=== PATIENT | female | born 1985 | race Caucasian/White ===

== ENCOUNTER 2019-04-21 09:23 | Inpatient (IN) | payer OTHER ==
[2019-04-21 10:08] LABS: ADD MAN DIFF? NO
[2019-04-21 10:11] LABS: BASOPHIL # 0.1 10^3/ul (0.0-0.1); BASOPHILS % 0.8 % (0.0-2.0); EOSINOPHILS # 0.2 10^3/ul (0.0-0.5); EOSINOPHILS % 2.5 % (0.0-7.0); HEMATOCRIT 40.2 % (37.0-47.0); HEMOGLOBIN 12.6 g/dl (12.0-16.0); LYMPHOCYTES # 1.5 10^3/ul (0.8-2.9); LYMPHOCYTES % 19.1 % (15.0-51.0); MEAN CORPUSCULAR HEMOGLOBIN 25.3 pg (29.0-33.0); MEAN CORPUSCULAR HGB CONC 31.3 g/dl (32.0-37.0); MEAN CORPUSCULAR VOLUME 80.6 fl (82.0-101.0); MEAN PLATELET VOLUME 9.5 fl (7.4-10.4); MONOCYTE # 0.5 10^3/ul (0.3-0.9); NEUTROPHIL # 5.4 10^3/ul (1.6-7.5); NEUTROPHILS % 71.2 % (39.0-77.0); PLATELET COUNT 291 10^3/UL (140-415); RED BLOOD COUNT 4.99 10^6/ul (4.20-5.40); RED CELL DISTRIBUTION WIDTH 13.3 % (11.5-14.5)
[2019-04-21 10:11] LABS: WHITE BLOOD COUNT 7.6 10^3/ul (4.8-10.8)
[2019-04-21] MEDS: SOD CHLORIDE 0.9% 1,000 ML IV (10:16)
[2019-04-21] MEDS: morphine 4 MG/ML VIAL IV (10:17)
[2019-04-21] MEDS: ONDANSETRON 4 MG INJ IV ×2 (10:17→12:52)
[2019-04-21 10:35] LABS: ALANINE AMINOTRANSFERASE 18 IU/L (13-69); ALBUMIN 4.5 g/dl (3.3-4.9); ALKALINE PHOSPHATASE 91 IU/L (42-121); ANION GAP 13 (5-13); ASPARTATE AMINO TRANSFERASE 23 IU/L (15-46); BILIRUBIN,INDIRECT 0.6 mg/dl (0-1.1); BILIRUBIN,TOTAL 0.6 mg/dl (0.2-1.3); BLOOD UREA NITROGEN 15 mg/dl (7-20); CARBON DIOXIDE 25 mmol/L (21-31); CHLORIDE 106 mmol/L (97-110); CREATININE 0.71 mg/dl (0.44-1.00); Estimated GFR > 60 mL/min (>60); GLUCOSE 138 mg/dl (70-220); POTASSIUM 3.6 mmol/L (3.5-5.1); SODIUM 144 mmol/L (135-144); TOTAL PROTEIN 7.5 g/dl (6.1-8.1)
[2019-04-21 10:37] LABS: INR 0.95; PROTIME 12.8 Sec (11.9-14.9)
[2019-04-21 10:38] LABS: PARTIAL THROMBOPLASTIN TIME 31.7 Sec (23.0-35.0)
[2019-04-21] MEDS ORDERED: ACETAMINOPHEN 325 MG TAB PO (12:30)
[2019-04-21] MEDS ORDERED: ONDANSETRON 4 MG INJ IV (12:30)
[2019-04-21] MEDS: HYDROmorphONE 1 MG/ML SYG IV (12:53)
[2019-04-21] MEDS ORDERED: NACL 0.9% 3 ML SYG IV (15:00)
[2019-04-21] MEDS: HYDROmorphONE 2 MG/ML SYG IV (23:38)
[2019-04-22] MEDS: DIPHENHYDRAMINE 50 MG CAP PO ×2 (02:30→20:11)
[2019-04-22 06:28] LABS: ADD MAN DIFF? NO
[2019-04-22 06:30] LABS: WHITE BLOOD COUNT 7.2 10^3/ul (4.8-10.8)
[2019-04-22 06:30] LABS: BASOPHIL # 0.1 10^3/ul (0.0-0.1); BASOPHILS % 0.8 % (0.0-2.0); EOSINOPHILS # 0.3 10^3/ul (0.0-0.5); HEMATOCRIT 38.3 % (37.0-47.0); LYMPHOCYTES # 1.9 10^3/ul (0.8-2.9); MEAN CORPUSCULAR HEMOGLOBIN 25.1 pg (29.0-33.0); MEAN CORPUSCULAR HGB CONC 31.3 g/dl (32.0-37.0); MEAN CORPUSCULAR VOLUME 80.1 fl (82.0-101.0); MEAN PLATELET VOLUME 9.9 fl (7.4-10.4); MONOCYTE # 0.6 10^3/ul (0.3-0.9); MONOCYTES % 8.2 % (0.0-11.0); NEUTROPHIL # 4.3 10^3/ul (1.6-7.5); NEUTROPHILS % 59.6 % (39.0-77.0); PLATELET COUNT 302 10^3/UL (140-415); RED BLOOD COUNT 4.78 10^6/ul (4.20-5.40); RED CELL DISTRIBUTION WIDTH 13.2 % (11.5-14.5)
[2019-04-22 06:57] LABS: ALANINE AMINOTRANSFERASE 14 IU/L (13-69); ALBUMIN 4.2 g/dl (3.3-4.9); ALBUMIN/GLOBULIN RATIO 1.35; ALKALINE PHOSPHATASE 86 IU/L (42-121); ANION GAP 8 (5-13); ASPARTATE AMINO TRANSFERASE 27 IU/L (15-46); BILIRUBIN,INDIRECT 0.6 mg/dl (0-1.1); BILIRUBIN,TOTAL 0.6 mg/dl (0.2-1.3); BLOOD UREA NITROGEN 11 mg/dl (7-20); CALCIUM 8.8 mg/dl (8.4-10.2); CARBON DIOXIDE 28 mmol/L (21-31); CHLORIDE 106 mmol/L (97-110); CREATININE 0.65 mg/dl (0.44-1.00); Estimated GFR > 60 mL/min (>60); GLUCOSE 94 mg/dl (70-220); MAGNESIUM 2.2 mg/dl (1.7-2.5); PHOSPHORUS 2.9 mg/dl (2.5-4.9); POTASSIUM 4.2 mmol/L (3.5-5.1); SODIUM 142 mmol/L (135-144); TOTAL PROTEIN 7.3 g/dl (6.1-8.1)
[2019-04-22 07:36] LABS: HEMOGLOBIN A1C 5.1 % (0-5.9)
[2019-04-22] MEDS: HYDROmorphONE 2 MG/ML SYG IV ×3 (08:00→18:19)
[2019-04-22] MEDS: ONDANSETRON 4 MG INJ IV ×3 (08:03→20:13)
[2019-04-22] MEDS: ACETAMINOPHEN 325 MG TAB PO (14:15)
[2019-04-23] MEDS: HYDROmorphONE 2 MG/ML SYG IV (10:44)
[2019-04-23] MEDS: ONDANSETRON 4 MG INJ IV (10:45)
== END 2019-04-23 13:15 | disposition home or self-care (01) | DRG 92 ==
LOC: E/R 09:23 → PP2 12:07
DX: T85.09XA Other mechanical complication of ventricular intracranial (communicating) shunt, initial encounter (principal); G91.9 Hydrocephalus, unspecified; Y83.9 Surgical procedure, unspecified as the cause of abnormal reaction of the patient, or of later complication, without mention of misadventure at the time of the procedure; Y92.9 Unspecified place or not applicable
CPT/HCPCS: 70450; 80053; 83036; 83735; 84100; 84443; 85025; 85610; 85730; 96374; 96375; 99285-25; G0378